=== PATIENT | male | born 1965 | race Two or more races ===

== ENCOUNTER 2016-05-06 08:49 | Emergency (ER) | payer BC ==
[2016-05-06 09:05] VITALS: BP 122/69
--- NOTE | 2016-05-06 10:00 | UC ---
Respiratory Complaint HPI - HPI Summary HPI Summary: SLIPPED AND FELL IN SHOWER 10 DAYS AFO. WENT TO [facility] AND DIAGNOSED WITH RIGHT SIDED RIB FRACTURE. SINCE THEN PT HAS HAD PERSISTENT PAIN WITH DEEP BREATHS, COUGHING AND MVMT. 3 DAYS AGO STARTED FEELING SOB. HAS A SCRATCHY THROAT, SOME NASAL CONGESTION AND BENITEZ. SUBJECTIVE FEVER AND CHILLS. - History of Current Complaint Chief Complaint: UC Stated Complaint: CONGESTION/COUN Time Seen by Provider: 05/06/16 09:43 Hx Obtained From: Patient Onset/Duration: Gradual Onset, Lasting Days, Still Present Timing: Constant Severity Initially: Moderate Severity Currently: Moderate Pain Intensity: 0 Pain Scale Used: 0-10 Numeric Character: Cough: Nonproductive Aggravating Factors: Deep Breaths - COUGH, MVMT Alleviating Factors: Nothing Associated Signs And Symptoms: Positive: Dyspnea, Fever, URI, Nasal Congestion. Negative: Wheezing, Hemoptysis, Edema - Allergies/Home Medications Allergies/Adverse Reactions: Allergies Allergy/AdvReac Type Severity Reaction Status Date / Time No Known Allergies Allergy Verified 05/06/16 08:58 Home Medications: Home Medications Ibuprofen [Ibuprofen 200 MG] 800 mg PO Q6H PRN 05/06/16 [History Confirmed 05/06] PMH/Surg Hx/FS Hx/Imm Hx Previously Healthy: Yes Endocrine History Of: Denies: Diabetes, Thyroid Disease Cardiovascular History Of: Denies: Hypertension, Pacemaker/ICD Respiratory History Of: Denies: Asthma - Surgical History Surgical History: Yes Surgery Procedure, Year, and Place: [facility] BACK 8 YRS AGO. right knee - Family History Known Family History: Positive: None Negative: Cardiac Disease, Hypertension - Social History Alcohol Use: Occasionally Substance Use Type: None Smoking Status (MU): Never Smoked Tobacco Have You Smoked in the Last Year: No - Immunization History Most Recent Influenza Vaccination: none Review of Systems Constitutional: Fever, Chills ENT: Sore Throat, Nasal Discharge Respiratory: Shortness Of Breath, Cough Cardiovascular: Negative Gastrointestinal: Negative Neurological: Headache All Other Systems Reviewed And Are Negative: Yes Physical Exam Triage Information Reviewed: Yes Appearance: Well-Appearing, No Pain Distress, Well-Nourished Vital Signs: Initial Vital Signs Temp 98.4 F 05/06/16 09:00 Pulse 83 05/06/16 09:00 Resp 16 05/06/16 09:00 BP 122/69 05/06/16 09:00 Pulse Ox 99 05/06/16 09:00 Vital Signs Reviewed: Yes Eyes: Positive: Conjunctiva Clear ENT: Positive: Hearing grossly normal, Pharynx normal, TMs normal Neck: Positive: Supple, Nontender, No Lymphadenopathy Respiratory Exam: Normal Cardiovascular Exam: Normal Abdomen Description: Positive: Soft Musculoskeletal: Positive: No Edema, Other: - TTP RIGHT ANTERIOR RIB CAGE Neurological: Positive: Alert Psychological: Positive: Age Appropriate Behavior Skin: Negative: rashes UC Diagnostic Evaluation - Laboratory O2 Sat by Pulse Oximetry: 99 - Radiology Xray Interpretation: No Acute Changes - CHEST XRAY Radiology Interpretation Completed By: Radiologist Respiratory Course/Dx - Differential Dx/Diagnosis Provider Diagnoses: ACUTE URI Discharge - Discharge Plan Condition: Stable Disposition: HOME Patient Education Materials: Upper Respiratory Infection (ED) Referrals: Rashaad Valdes MD [Primary Care Provider] - If Needed Additional Instructions: CHEST XRAY TODAY UNREMARKABLE. BE SURE TO TAKE DEEP BREATHS TO KEEP YOUR LUNG CAPACITY UP. REST, HYDRATE, OTC MEDS NEEDED FOR DISCOMFORT. SEEK FOLLOW-UP IF YOU ARE NOT IMPROVING EXPECTED OVER THE NEXT 1-2 WEEKS. GO TO THE ER WITHOUT FAIL IF YOU DEVELOP WORSENING SHORTNESS OF BREATH, CHEST PAIN, FEVER, NAUSEA OR ANY OTHER CONCERNING SYMPTOMS.
--- NOTE | 2016-05-06 10:24 | RAD ---
INDICATION: Shortness of breath. History of rib fracture 10 days ago. COMPARISON: November 13, 2003 TECHNIQUE: Dual energy PA and routine lateral views of the chest were obtained. REPORT: No RIGHT or LEFT rib fracture evident. Clear lungs and pleural spaces. Negative for pneumothorax. The heart, pulmonary vasculature, and mediastinal contours are unremarkable. Unremarkable osseous structures and soft tissue contours. IMPRESSION: No evidence for acute intrathoracic disease.
== END 2016-05-06 11:00 | disposition home or self-care (01) ==
LOC: UCEAST 08:49
DX: J06.9 Acute upper respiratory infection, unspecified (principal)
CPT/HCPCS: 71020; 99211; G0463

== ENCOUNTER 2016-05-20 16:22 | Emergency (ER) | payer BC ==
[2016-05-20] MEDS ORDERED: oxyCODONE/Acetamin 5/325 MG* TAB PO ONE ×3 (17:35→21:16)
--- NOTE | 2016-05-20 18:42 | RAD ---
Indication: Saw injury to the left hand. 4 views of left hand demonstrates partial amputation through the base of the dorsal aspect third digit as well as a defect in the mid to mid phalanx dorsally of the fourth digit. No other fractures are noted. IMPRESSION: Traumatic defects in the dorsal aspect of the proximal end middle phalanx of the third and middle phalanx of the fourth digit with a bony fragment near the dorsal aspect of the third proximal phalanx.
[2016-05-20] MEDS ORDERED: Tetan/Diph/Pertus SYR(Tdap)* 0.5 ML SYR(BOOSTRIX) use SYR IM ONE (20:13)
[2016-05-20] MEDS ORDERED: Ciprofloxacin TAB* 500 MG PO ONE (21:42)
[2016-05-20 22:08] VITALS: BP 132/74
--- NOTE | 2016-05-21 15:28 | ED ---
Laceration/Wound HPI - HPI Summary HPI Summary: Patient arrives to ED after sustaining a laceration to the left third and fourth fingers from a table saw 1 hour ago. Patient denies feeling in the distal portion of the fingers. Good blood flow. Moderate amount of blood loss per patient. Patient unable to extend or flex fingers. Wrist is OK and not involved. Fourth, fifth and thumb are without injury. Pain is 8/10 and is localized to the third and fourth fingers. Pulses intact. - History of Current Complaint Stated Complaint: CUT FINGERS WITH TABLE SAW Time Seen by Provider: 05/20/16 17:27 Hx Obtained From: Patient Mechanism of Injury: Sharp/Blunt Trauma - table saw Aggravating: Movement Alleviating: Other - full extension Timing: Constant Onset Severity: Moderate Current Severity: Moderate Pain Intensity: 5 Pain Scale Used: 0-10 Numeric Associated Signs & Symptoms: Numbness, Pain Related Hx: Dominant Hand (Right) - Allergy/Home Medications Allergies/Adverse Reactions: Allergies Allergy/AdvReac Type Severity Reaction Status Date / Time No Known Allergies Allergy Verified 05/20/16 16:37 PMH/Surg Hx/FS Hx/Imm Hx Previously Healthy: Yes Endocrine/Hematology History: Denies: Hx Diabetes, Hx Thyroid Disease Cardiovascular History: Denies: Hx Hypertension, Hx Pacemaker/ICD Respiratory History: Denies: Hx Asthma GI History: Denies: Other GI Disorders History: Reports: Other Problems/Disorders - ENLARGE PROSTATE Sensory History: Reports: Hx Contacts or Glasses - CONTACTS WILL WEAR GLASSES DAY OF SURGERY Denies: Hx Hearing Aid Opthamlomology History: Reports: Hx Contacts or Glasses - CONTACTS WILL WEAR GLASSES DAY OF SURGERY Psychiatric History: Denies: Hx Panic Disorder - Surgical History Surgery Procedure, Year, and Place: [facility] BACK 8 YRS AGO. right knee Hx Anesthesia Reactions: No Infectious Disease History: No Infectious Disease History: Reports: Hx of Known/Suspected MRSA Denies: Traveled Outside the [place] in Last 30 Days - Family History Known Family History: Positive: None Negative: Cardiac Disease, Hypertension - Social History Occupation: Employed Full-time Lives: With Family Alcohol Use: Occasionally Hx Substance Use: No Substance Use Type: Reports: None Hx Tobacco Use: No Smoking Status (MU): Never Smoked Tobacco Have You Smoked in the Last Year: No Review of Systems Constitutional: Negative Cardiovascular: Negative Respiratory: Negative Genitourinary: Negative Positive: see HPI Positive: Decreased ROM - unable to flex and extend Positive: Other - maceration to third and fourth finger over left hand Positive: Numbness - third and fourth fingers of left hand Psychological: Normal All Other Systems Reviewed And Are Negative: Yes Physical Exam Triage Information Reviewed: Yes Vital Signs On Initial Exam: Initial Vitals Temp Pulse Resp BP Pulse Ox 98.3 F 94 18 138/75 99 05/20/16 16:37 05/20/16 16:37 05/20/16 16:37 05/20/16 16:37 05/20/16 16:37 Vital Signs Reviewed: Yes Appearance: Positive: Well-Appearing, Pain Distress Skin: Positive: Warm, Skin Color Reflects Adequate Perfusion, Other - macerated 3rd finger superior to the PIP joint with laceration involving tendon. Bone appears to be intact; macerated 4th finger of left hand with tendon involvment inferior to the DIP, bone appears to be involved. Maceration of skin to the ulnar side of 3th finger Head/Face: Positive: Normal Head/Face Inspection, Temporal Artery Tenderness Eyes: Positive: GORDON, Conjunctiva Clear ENT: Positive: Hearing grossly normal Neck: Positive: No Lymphadenopathy Respiratory/Lung Sounds: Positive: Breath Sounds Present Cardiovascular: Positive: Normal, RRR, Pulses are Symmetrical in both Upper and Lower Extremities Musculoskeletal: Positive: Normal, Strength/ROM Intact Neurological: Positive: Alert, Oriented to Person Place, Time, Speech Normal, Other - pinprick to 3rd and 4th left fingers. patient endorses numbness and tingling to fingertips. Psychiatric: Positive: Normal, Affect/Mood Appropriate AVPU Assessment: Alert Procedures - Laceration/Wound Repair 1 Location: upper extremity - finger, Other Description: Irregular Anesthesia: Local, 2.0%, Epi Length, Depth and Shape: 1cm length, .25 depth, shape irregular Betadine Prep?: No Laceration/Wound Explored: clean, no foreign body removed Closure: Single Layer - loose closure with 5 sutures Debridement: minimal Suture Type: Vicryl Number of Sutures: 5 Layer Closure?: No Sterile Dressing Applied?: No - telfa dressing with xeroform occlusive gauze strips over maceration areas 2 Location: upper extremity - 4th finger of left hand Description: Irregular Anesthesia: Local, 2.0%, Epi Betadine Prep?: No Laceration/Wound Explored: clean, no foreign body removed Closure: Single Layer Debridement: minimal Suture Type: Vicryl Number of Sutures: 4 Layer Closure?: No Sterile Dressing Applied?: No - telfa dressing with xeroform occlusive gauze strips over maceration areas Diagnostics - Vital Signs Vital Signs Temp Pulse Resp BP Pulse Ox 05/20/16 22:06 98.9 F 77 14 132/74 05/20/16 16:37 98.3 F 94 18 138/75 99 - Laboratory Lab Statement: Any lab studies that have been ordered have been reviewed, and results considered in the medical decision making process. - Radiology No standard instances Xray Interpretation: Positive (See Comments) - dorsal aspect of proximal end middle phalynx of the third and middle phalynx of the fourth digit with bony fragment near the dorsal aspect of the third proximal phalynx Radiology Interpretation Completed By: Radiologist Laceration Repair Course/Dx - Course Course Of Treatment: Macerated 3rd finger superior to the PIP joint with laceration involving tendon, bone appears to be intact; macerated 4th finger of left hand with tendon involvment inferior to the DIP, bone appears to be involved. Maceration of skin to the ulnar side of 3th finger. See hand Xray. Irrigated well, tetanus updated. 5 loose closure sutures to 3rd finger of left hand, 4 loose sutures to 4th finger of left hand. Xeroform applied to areas of maceration. Volar spint extending to fingertips with comfortable position for patient. Antibiotics given. Follow up with DR. Gamboa on Monday or Monday. Called and consulted with Dr. Lugo at 7:15pm. Pain medication given as outpatient. - Differential Dx Differental Diagnoses: Avulsion, Foreign Body, Laceration, Tendon Laceration - Clinical Impression Provider Diagnoses: Extensor tendon laceration of left hand with open wound Discharge - Discharge Plan Condition: Stable Disposition: HOME Prescriptions: Cefuroxime Axetil [Ceftin 250 MG] 250 mg PO BID #20 tab oxyCODONE/Acetamin 10/325(NF) [Percocet 10/325 (NF)] 1 tab PO Q6H #15 tab MDD 4 Patient Education Materials: Finger Laceration (ED), Tendon Laceration (ED) Forms: *Work Release Referrals: Rashaad Valdes MD [Primary Care Provider] - Liliana Gamboa MD [Medical Doctor] - Additional Instructions: Do not get splint wet. Take antibiotic as prescribed to you. Follow up with DR. Gamboa on Monday. IF you develop fever or worsening pain not controlled with your pain medication , come back to ED. Images - Images Hands: 1 - macerated skin with laceration through tendon involving bone 2 - maceration with laceration involving tendon likely without bone involvement
[2016-05-21] MEDS ORDERED: ceFUROXime 500 mg TAB(NF) 500 MG TAB PO ONE (21:13)
[2016-05-24] MEDS ORDERED: Buffered Lidocaine 1% SYR 3ML* 3 ML/SYR SYRINGE INTRADERM ONE (06:00)
== END 2016-05-20 22:06 | disposition home or self-care (01) ==
LOC: ED 16:22
DX: S56.424A Laceration of extensor muscle, fascia and tendon of left middle finger at forearm level, initial encounter (principal); S56.426A Laceration of extensor muscle, fascia and tendon of left ring finger at forearm level, initial encounter; W45.8XXA Other foreign body or object entering through skin, initial encounter; Y93.9 Activity, unspecified; Y92.9 Unspecified place or not applicable; Y99.9 Unspecified external cause status; R20.0 Anesthesia of skin
CPT/HCPCS: 12002; 90471; 90715; 99284; A9270-GY

== ENCOUNTER 2016-05-24 11:07 | Day surgery (SDC) | payer BC ==
--- NOTE | 2016-05-24 06:52 | HP ---
PREOPERATIVE HISTORY AND PHYSICAL: DATE OF SURGERY/ADMISSION: 05/24/16 DATE OF OFFICE VISIT/ENCOUNTER: 05/23/16 ATTENDING SURGEON: Liliana Gamboa MD PROCEDURE: Left long and ring finger extensor tendon repair. HISTORY OF PRESENT ILLNESS: This is a 51-year-old male who injured his left hand on 05/20/16 when he was working at home with a table saw. He cut himself on the dorsal aspect of the middle and ring fingers of the left hand. He was seen at [facility] and had x-rays taken which were positive for fracture and bony defect. He had sutures placed. He complains of inability to straighten his fingers and pain with any movement. He has been evaluated by Dr. Gamboa and it was determined that the left long and ring finger extensor tendons had been lacerated. He had consented to proceed with surgical intervention at this time in the form of the left long and ring finger extensor tendon repair. PAST MEDICAL HISTORY: Benign prostatic hypertrophy. PAST SURGICAL HISTORY: 1. Back surgery proximally 15 years ago. 2. Appendectomy. 3. Right knee arthroscopy. CURRENT MEDICATIONS: 1. Cefuroxime axetil 250 mg. 2. Finasteride 5 mg. 3. Tamsulosin HCL 0.4 mg. ALLERGIES: No known drug allergies. FAMILY MEDICAL HISTORY: Noncontributory. 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 He denies tobacco use. He denies recreational drug use. He does admit to alcohol use on occasion. REVIEW OF SYSTEMS: General: Negative for fevers, chills, or night sweats. No known anesthesia problems. HEENT: Negative for headache, lightheadedness, or syncopal episodes. Integumentary: Negative for abrasions, lesions, or open wounds. Cardiothoracic: Negative for chest pain, palpitations, or edema. Negative for hypertension. Pulmonary: Negative for shortness of breath with exertion, chronic cough, COPD. GI: Negative for nausea, vomiting, diarrhea, or GERD. : Positive for BPH. Negative for nocturia, urinary frequency, urgency, history of UTIs, or kidney problems. Musculoskeletal: Positive for current complaint. Negative for chronic or intermittent back pain or history of fractures. Neurological: Negative for paresthesias, numbness, history of seizure, stroke, or epilepsy. Endocrine: Negative for diabetes or thyroid issues. Hematologic: Negative for easy bruising, anemia, excessive bleeding, or history of DVT. Infectious Disease: Positive for questionable history of MRSA. Negative for hepatitis C or HIV. PHYSICAL EXAMINATION GENERAL: Well-developed, well nourished, 51-year-old male, in no acute distress. VITAL SIGNS: Height 5 feet 5 inches, weight 180 pounds, blood pressure 128/83, pulse rate 60. HEENT: Normocephalic, atraumatic. Pupils are equal, round, and reactive to light and accommodation. Extraocular movements are intact. NECK: Supple. No palpable lymph nodes. Throat is clear. PULMONARY: Lungs are clear to auscultation bilaterally. No wheezes, rales, or rhonchi. CARDIOTHORACIC: Regular rate and rhythm. S1 and S2. No murmurs, rubs, or gallops. No edema. ABDOMEN: Positive bowel sounds, soft, nontender. NEUROLOGICAL: Alert and oriented x3. Cranial nerves II through X11 are intact. Sensation is intact to light touch. MUSCULOSKELETAL: On exam of his left hand, he has lacerations on the dorsal aspect of the middle phalanx of his ring and middle fingers of the left hand. They are clean. There is no sign of infection. He does not have active extension of the fingers distal to the lacerations. Sensation is intact to light touch at the tip of his fingers. IMAGING STUDIES: X-rays of the left hand show fracture of the middle phalanx of the middle finger at the insertion of the extensor tendon with retraction of the fracture fragments. There is also width of a saw blade bone missing from the dorsal aspect of the ring finger, but without fracture. IMPRESSION: Laceration to left ring and middle finger, extensor tendons from table saw injury. PLAN: The patient is scheduled to undergo a left long and ring finger extensive tendon repair with Dr. Gamboa on 05/24/16. He will return to the office in 10 to 14 days postop for followup and suture removal. A prescription for [place] was e- scribed to the patient's pharmacy for postoperative pain management. URIEL CASTELAN [id number]/[facility] #: [id number] STACEY
[2016-05-24] MEDS ORDERED: ceFAZolin 2 GM PREMIX (*) 2 GM/50 ML BAG IVPB ONE (11:48)
[2016-05-24] MEDS ORDERED: Midazolam* 1 MG/ML 2 ML VIAL (2 MG) ONE (12:34)
[2016-05-24] MEDS ORDERED: fentaNYL* 50 MCG/ML 2 ML VIAL (100 MCG VIAL) ONE (12:34)
[2016-05-24] MEDS ORDERED: Lidocaine 1% INJ* 10 MG/ML 30 ML SDV ONE (12:57)
[2016-05-24 14:37] VITALS: BP 114/70
--- NOTE | 2016-05-25 18:06 | OP ---
DATE OF OPERATION: 05/24/16 - [facility] DATE OF : 61 SURGEON: Dr. Gamboa C IRON WORKER: URIEL Devlin ANESTHESIOLOGIST: Remy Saenz MD ANESTHESIA: Local, MAC. PRE-OP DIAGNOSIS: Table saw injury to the left long and ring fingers with extensor tendon lacerations. POST-OP DIAGNOSIS: Table saw injury to the left long and ring fingers with extensor tendon lacerations. OPERATIVE PROCEDURE: Extensor tendon repair, left long and ring finger. ESTIMATED BLOOD LOSS: Zero. TOURNIQUET TIME: About 30 minutes. INDICATION FOR PROCEDURE: Kaleb is a 31-year-old man who was using a table saw. He accidentally cut the dorsal aspect of his ring and long fingers. This occurred 2 days ago. He cannot extend the DIP joint of the ring finger or the PIP joint of his middle finger. He presents for extensor tendon repairs. X- ray shows a bony fragment at the insertion of the central slip of the middle finger, which is retracted proximally. DESCRIPTION OF PROCEDURE: The patient was brought to the operating room, was given a sedation anesthetic, and a digital block with 10 cc of 1% plain lidocaine. The skin of his left hand and forearm was prepped and draped in the usual sterile fashion. The hand and forearm were exsanguinated and tourniquet elevated to 250 mmHg. The sutures were removed and the ring finger ends of the tendon were located and repaired in interrupted fashion with 4-0 nylon suture. The tissue was very, very thin. There was also a gouge-out of the bone from the table saw, but no fracture. The skin was very macerated. To protect the repair, a 0.035-inch K-wire was driven across the DIP joint through the distal phalanx and into the middle phalanx with the finger in full extension. The position of the K-wire was checked on the C-arm in the AP and lateral views, found to be satisfactory. Next, the middle finger extensor tendon was located and the wound copiously irrigated with saline. There was a cartilage defect on the distal surface of the proximal phalanx from the table saw. The wound was copiously irrigated with saline. The PIP joint was pinned with a single 0.035- inch K-wire driven through the proximal phalanx and into the middle phalanx in full extension. Next, 2 Mitek suture anchors were placed in the middle phalanx and the sutures used through the bony fragment to reapproximate the central slip to the middle phalanx. The skin edges were reapproximated with 4-0 nylon suture. The wounds were dressed with Xeroform, 4x4, Webril, and an ulnar gutter splint in position of function. The patient tolerated the procedure well and was brought to the recovery room in good condition. [id number]/[facility] #: [id number] STACEY
== END 2016-05-24 14:30 | disposition home or self-care (01) ==
LOC: OREAST 11:07
PROVIDERS: ATTEND Orthopaedic Surgery
DX: S66.323A Laceration of extensor muscle, fascia and tendon of left middle finger at wrist and hand level, initial encounter (principal); S66.325A Laceration of extensor muscle, fascia and tendon of left ring finger at wrist and hand level, initial encounter; W29.8XXA Contact with other powered hand tools and household machinery, initial encounter; Y92.009 Unspecified place in unspecified non-institutional (private) residence as the place of occurrence of the external cause
CPT/HCPCS: C1713; C1776; J0690; J2250; J3010

== ENCOUNTER 2016-11-08 09:51 | Emergency (ER) | payer SELFPAY ==
[2016-11-08 11:54] VITALS: BP 110/74
--- NOTE | 2016-11-08 11:57 | RAD ---
Indication: Surgery of the left middle finger with. Drainage. 3 views of left middle finger demonstrates anchor is in the proximal end middle phalanx of the third digit. Lucency appears to BE improved since previous exam. Angulation is unchanged from July 06, 2016. IMPRESSION: Postoperative changes of the proximal interphalangeal joint of the third finger.
--- NOTE | 2016-11-08 12:58 | UC ---
Skin Complaint HPI - HPI Summary HPI Summary: HAD SURGERY ON LEFT MIDDLE FINGER . NO COMPLICATIONS. LAST WEEK ACCIDENTLY TWISTED FINGER , SINCE THAT TIME HAS HAD DRAINAGE FROM FINGER AT SITE OF OLD SURGICAL INCISION. - History of Current Complaint Chief Complaint: UCUpperExtremity Time Seen by Provider: 11/08/16 10:46 Stated Complaint: WOUND ON FINGER CHECK Hx Obtained From: Patient Onset/Duration: Gradual Onset, Lasting Days, Still Present Skin Exposure Onset/Duration: Days Ago Onset Severity: Mild Current Severity: Moderate Pain Intensity: 0 Pain Scale Used: 0-10 Numeric Location: Discrete - LEFT THIRD FINGER Character: Swelling, Redness, Raised, Painful Aggravating: Nothing, Touch Alleviating: Nothing Associated Signs & Symptoms: Positive: Drainage, Tenderness, Red Streaks. Negative: Vomiting, Numbness, Fever, Chills, Cough, Chest Pain, Hoarseness, Throat Tightening, Rash Related History: Trauma - Allergy/Home Medications Allergies/Adverse Reactions: Allergies Allergy/AdvReac Type Severity Reaction Status Date / Time No Known Allergies Allergy Verified 11/08/16 10:06 Review of Systems Constitutional: Negative Skin: Other - ABSCESS DRAINING ON LEFT THIRD FINGER Eyes: Negative ENT: Negative Respiratory: Negative Cardiovascular: Negative Gastrointestinal: Negative Genitourinary: Negative Motor: Negative Neurovascular: Negative Musculoskeletal: Negative Neurological: Negative Psychological: Negative All Other Systems Reviewed And Are Negative: Yes PMH/Surg Hx/FS Hx/Imm Hx Previously Healthy: Yes - Surgical History Surgical History: Yes Surgery Procedure, Year, and Place: [facility] BACK 8 YRS AGO-[facility]. right knee-[facility] - Family History Known Family History: Positive: None Negative: Cardiac Disease, Hypertension - Social History Occupation: Employed Full-time Lives: With Family Alcohol Use: Weekly Alcohol Amount: 2 GLASSES WEEKLY Substance Use Type: None Smoking Status (MU): Never Smoked Tobacco Have You Smoked in the Last Year: No - Immunization History Most Recent Influenza Vaccination: none Physical Exam Triage Information Reviewed: Yes Appearance: Well-Appearing, No Pain Distress, Well-Nourished Vital Signs: Initial Vital Signs Temp 99.1 F 11/08/16 10:06 Pulse 88 11/08/16 10:06 Resp 18 11/08/16 10:06 BP 110/71 11/08/16 10:06 Pulse Ox 98 11/08/16 10:06 Vital Signs Reviewed: Yes Eye Exam: Normal Eyes: Positive: Conjunctiva Clear ENT Exam: Normal Dental Exam: Normal Neck exam: Normal Respiratory Exam: Normal Respiratory: Positive: Chest non-tender, Lungs clear, Normal breath sounds, No respiratory distress Cardiovascular Exam: Normal Cardiovascular: Positive: RRR, No Murmur, Pulses Normal Abdominal Exam: Normal Musculoskeletal Exam: Normal Neurological Exam: Normal Psychological Exam: Normal Skin: Positive: Other - ABSCESS DRAINING LEFT THIRD FINGER Course/Dx - Differential Diagnoses - Skin Complaint Differential Diagnoses: Abscess, Cellulitis, Impetigo, Other - OSTEOMYELITIS - Diagnoses Provider Diagnoses: LEFT THIRD FINGER ABSCESS Discharge - Discharge Plan Condition: Stable Disposition: HOME Prescriptions: Cephalexin CAP* [Keflex CAP*] 500 mg PO QID #40 cap Patient Education Materials: Abscess (ED) Referrals: Rashaad Valdes MD [Primary Care Provider] - Liliana Gamboa MD [Medical Doctor] -
--- NOTE | 2016-11-09 16:35 | ED ---
Progress - Progress Note Progress Note: PLEASE CALL PATIENT. CHANGED ABX TO BACTRIM DS. F/U WITH [facility]. Course/Dx - Diagnoses Provider Diagnoses: Abscess
== END 2016-11-08 12:19 | disposition home or self-care (01) ==
LOC: UCEAST 09:51
DX: L02.512 Cutaneous abscess of left hand (principal)
CPT/HCPCS: 73140; 87070; 87077; 87186; 87205; 87640; 87641; 99212; G0463

== ENCOUNTER → 2016-11-25 09:28 | Day surgery (SDC) | payer BC ==
--- NOTE | 2016-11-21 15:03 | HP ---
PREOPERATIVE HISTORY AND PHYSICAL: DATE OF SURGERY/ADMISSION: 11/25/16 DATE OF OFFICE VISIT/ENCOUNTER: 11/21/16 ATTENDING SURGEON: Liliana Gamboa MD * (DICTATED BY URIEL CASTELAN) PROCEDURE: Left middle finger incision and drainage, removal of foreign body. CHIEF COMPLAINT: Left middle finger infection. HISTORY OF PRESENT ILLNESS: This is a 51-year-old male who underwent a left middle finger extensor tendon repair by Dr. Gamboa back in April 2016. He reports that a couple of weeks ago, he noticed some drainage coming from the dorsal area of the PIP joint. He was seen at [facility] and was treated with antibiotics. He also had x-rays that did not show any sign of osteomyelitis; however, he is getting recurrent drainage and pain at the joint. X-rays of the finger did show the suture anchors that were placed during the tendon repair and they have backed out and possibly causing this problem. Dr. Gamboa is recommending surgical intervention at this time in the form of a left middle finger I and D and removal of the suture anchors. PAST MEDICAL HISTORY: Benign prostatic hypertrophy. PAST SURGICAL HISTORY: 1. Left long and ring finger extensor tendon repair. 2. Back surgery approximately 15 years ago. 3. Appendectomy. 4. Right knee arthroscopy. CURRENT MEDICATIONS: 1. Cefuroxime axetil 250 mg daily. 2. Finasteride 5 mg daily. 3. Tamsulosin HCl 0.4 mg daily. ALLERGIES: No known drug allergies. FAMILY MEDICAL HISTORY: Noncontributory. 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 He denies tobacco use and recreational drug use. He does admit to drinking alcohol on occasions. REVIEW OF SYSTEMS: General: Negative for fevers, chills, or night sweats. No known anesthesia problems. HEENT: Negative for headache, lightheadedness, or syncopal episodes. Integumentary: Negative for abrasions, lesions, or open wounds. Cardiothoracic: Negative for hypertension, chest pain, palpitations, or edema. Pulmonary: Negative for shortness of breath with exertion, chronic cough, or COPD. GI: Negative for nausea, vomiting, diarrhea, constipation, or GERD. : Positive for BPH. Negative for nocturia, urinary frequency, urgency , history of UTIs, or kidney problems. Musculoskeletal: Positive for current complaint. Negative for chronic or intermittent back pain or history of fractures. Neurological: Negative for paresthesias, numbness, history of seizures, stroke, or epilepsy. Endocrine: Negative for diabetes or thyroid issues. Hematologic: Negative for easy bruising, anemia, excessive bleeding, or history of DVT. Infectious Disease: Positive for questionable history of MRSA. Negative for hepatitis C or HIV. PHYSICAL EXAMINATION GENERAL: Well-developed, well-nourished 51-year-old male in no acute distress. VITAL SIGNS: Height 5 feet 5 inches, weight 180 pounds, pulse rate 64, blood pressure 112/72. HEENT: Normocephalic, atraumatic. Pupils are equal, round, and reactive to light and accommodation. Extraocular movements are intact. Throat is clear. NECK: Supple. No palpable lymph nodes. PULMONARY: Lungs are clear to auscultation bilaterally. No wheezes, rales, or rhonchi. CARDIOTHORACIC: Regular rate and rhythm. S1, S2. No murmurs, rubs, or gallops. No edema. ABDOMEN: Positive bowel sounds, soft, nontender. MUSCULOSKELETAL: On exam of the left middle finger, he has a pocket of swelling localized over the PIP joint. There is a scabbed over wound just distal to that, there is no active drainage at this time. Very faint erythema. The finger is tender to palpation over the PIP joint. Distal neurovascular function is intact. NEUROLOGICAL: Alert and oriented x3. Cranial nerves II through XII are intact. Sensation is intact to light touch. IMAGING STUDIES: X-rays of the left middle finger, AP, lateral, and oblique show the suture anchors near the PIP joint that appeared to have backed out some. IMPRESSION: Postop wound infection several months after surgery. PLAN: The patient is scheduled to undergo a left middle finger incision and drainage and removal of foreign bodies (suture anchors) on 11/25/[address] Gamboa. He will return to the office 10 to 14 days postop for followup. A prescription for Ultracet was e-scribed to the patient's pharmacy for postoperative pain management. URIEL CASTELAN [id number]/[facility] #: [id number] [facility]
[~2016-11-25 09:28] MED LIST: Acetaminophen TAB* 325 MG ONE; Acetaminophen TAB* 325 MG PO ONE; Buffered Lidocaine 0.9% SYRIN* 5 ML/SYR SYRINGE INTRADERM ONE; Lidocaine 1% INJ* 10 MG/ML 30 ML SDV ONE; Midazolam* 1 MG/ML 2 ML VIAL (2 MG) ONE; ceFAZolin 2 GM PREMIX (*) 50 ML IVPB ONE; fentaNYL* 50 MCG/ML 2 ML VIAL (100 MCG VIAL) ONE; traMADol TAB* 50 MG PO ONE
[2016-11-25 12:42] VITALS: BP 106/78
--- NOTE | 2016-11-26 13:32 | OP ---
DATE OF OPERATION: 11/25/16 - [facility] DATE OF : 61 SURGEON: Liliana Gamboa MD. DIRECTOR OF PHOTOGRAPHY: URIEL Devlin. ANESTHESIOLOGIST: Remy Saenz MD ANESTHESIA: Local MAC. PRE-OP DIAGNOSIS: Status post table saw injury of the left middle finger. POST-OP DIAGNOSIS: Status post table saw injury of the left middle finger. OPERATIVE PROCEDURE: Irrigation and debridement left middle finger and removal of foreign body. ESTIMATED BLOOD LOSS: Zero. TOURNIQUET TIME: About 15 minutes. INDICATION FOR PROCEDURE: Kaleb is a 51-year-old man who had a table saw injury to his left hand involving the ring and middle fingers. He has persistent pain and drainage from the middle finger PIP joint. He has 2 Mitek suture anchors which are not functioning and has decided to do I and D of the left middle finger with removal of the foreign bodies. DESCRIPTION OF PROCEDURE: The patient was brought to the operating room, was given a sedation anesthetic and a digital block with 10 cc of 1% plain lidocaine. Skin of his left hand and forearm was prepped and draped in the usual sterile fashion. The hand and forearm were exsanguinated and the tourniquet elevated to 250 mmHg. A longitudinal incision was made over the PIP joint and there was some purulent drainage and this was cultured. The wound was debrided and there was a small 5 mm area of skin defect. The Mitek suture anchors were removed and then the wound was copiously irrigated with saline and the skin edges reapproximated with 4-0 nylon suture. There was a small area where the skin was not able to be closed, about 5 mm in diameter. The wound was dressed with Xeroform, 4x4, Webril and Coban. The patient tolerated the procedure well, and was brought to the recovery room in good condition. [id number]/[facility] #: [id number] [facility]ENTER[facility]atha
== END | disposition home or self-care (01) ==
LOC: OR 09:28
PROVIDERS: ATTEND Orthopaedic Surgery
DX: T85.612A Breakdown (mechanical) of permanent sutures, initial encounter (principal); N40.0 Benign prostatic hyperplasia without lower urinary tract symptoms; Y79.3 Surgical instruments, materials and orthopedic devices (including sutures) associated with adverse incidents
CPT/HCPCS: 87070; 87073; 87077; 87186; 87205; 87640; 87641; A9270-GY; J0690; J2001; J2250; J3010

== ENCOUNTER 2017-01-11 09:53 | Emergency (ER) | payer BC ==
[2017-01-11] MEDS ORDERED: Famotidine IV* 10 MG/ML 2 ML (20 mg) IV SLOW PU ONE (10:03)
[2017-01-11] MEDS ORDERED: diPHENhydraMINE IV* 50 MG in NS 0.9% 50 ML* 50 ML IVPB ONE (10:03)
[2017-01-11] MEDS ORDERED: Dexamethasone IV* 4 MG/ML 1 ML (4 MG) IV SLOW PU ONE (10:03)
[2017-01-11] MEDS ORDERED: NS 0.9% 1000 ML* 1,000 ML IV SCH (10:15)
[2017-01-11 12:36] VITALS: BP 118/70
--- NOTE | 2017-01-12 08:30 | ED ---
Jadiel Agosto Angela, scribed for Arsenio Wall MD on 01/11/17 at 1014 . Allergic Reaction/Systemic - HPI Summary HPI Summary: This pt is a 52 y/o male presenting to [facility] c/o hives and throat tightening since last night. Pt reports his allergic reaction began after taking oral sulfa antibiotics last night. Pt notes initially he had body hives all over his body and throat tightening and swelling. Upon waking up today at 0430 pt notes he felt better and his hives were resolved. Pt went to work at 0600 but states he began to have more throat discomfort and throat tightening. 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 He notes he has chest pain, which he had prior to receiving epi. PMHx: BPH. PSHx: appendectomy. Pt denies tobacco or drug use, but states drinking alcohol. Pt is currently on tamsulosin for BPH. - History of Current Complaint Chief Complaint: EDAllergicReaction Time Seen by Provider: 01/11/17 09:55 Hx Obtained From: Patient Onset/Duration: Started hours ago Timing: Lasting Hours Pain Intensity: 0 Location: Diffuse - hives and throat tightening Character: Hives Aggravating Factor(s): Other - sulfa antibiotic Alleviating Factor(s): Epinephrine Associated Signs And Symptoms: Positive: Chest Pain, Throat Tightening, Other: - hives - Allergies/Home Medications Allergies/Adverse Reactions: Allergies Allergy/AdvReac Type Severity Reaction Status Date / Time Sulfamethoxazole Allergy Severe Hives/Diff. Verified 01/11/17 12:29 w/Trimethoprim Breathing/I [From Bactrim] tching PMH/Surg Hx/FS Hx/Imm Hx Endocrine/Hematology History: Denies: Hx Diabetes, Hx Thyroid Disease Cardiovascular History: Denies: Hx Hypertension, Hx Pacemaker/ICD Respiratory History: Denies: Hx Asthma GI History: Denies: Other GI Disorders History: Reports: Other Problems/Disorders - ENLARGED PROSTATE. BPH. Musculoskeletal History: Reports: Other Musculoskeletal History - FB AND INFECTION IN LEFT LONG FINGER Sensory History: Reports: Hx Contacts or Glasses - CONTACTS WILL WEAR GLASSES DAY OF SURGERY Denies: Hx Hearing Aid Opthamlomology History: Reports: Hx Contacts or Glasses - CONTACTS WILL WEAR GLASSES DAY OF SURGERY Psychiatric History: Denies: Hx Panic Disorder - Surgical History Surgery Procedure, Year, and Place: APPENDECTOMY-30 YRS AGO [place]. LUMBAR SPINE HERNIATION- [facility]. RIGHT MENISCAL REPAIR- 2014 [facility] Hx Anesthesia Reactions: No Infectious Disease History: Yes Infectious Disease History: Reports: Hx of Known/Suspected MRSA Denies: Traveled Outside the [place] in Last 30 Days - Family History Known Family History: Negative: Cardiac Disease, Hypertension - Social History Alcohol Use: Weekly Alcohol Amount: 2 GLASSES WEEKLY Hx Substance Use: No Substance Use Type: Reports: None Hx Tobacco Use: No Smoking Status (MU): Never Smoked Tobacco Have You Smoked in the Last Year: No Review of Systems Negative: Fever, Chills Positive: Other - throat tightening and swelling Positive: Chest Pain Respiratory: Negative Gastrointestinal: Negative Genitourinary: Negative Musculoskeletal: Negative Positive: Other - hives All Other Systems Reviewed And Are Negative: Yes Physical Exam - Summary Physical Exam Summary: VITAL SIGNS: Reviewed. GENERAL: Patient is a well-developed and nourished male who is lying comfortable in the stretcher. Patient is not in any acute respiratory distress. HEAD AND FACE: No signs of trauma. No ecchymosis, hematomas or skull depressions. No sinus tenderness. EYES: PERRLA, EOMI x 2, No injected conjunctiva, no nystagmus. EARS: Hearing grossly intact. Ear canals and tympanic membranes are within normal limits. MOUTH: Oropharynx within normal limits. Pt has no lip swelling or tongue swelling. The throat is patent and airway is open. NECK: Supple, trachea is midline, no adenopathy, no JVD, no carotid bruit, no c- spine tenderness, neck with full ROM. CHEST: Symmetric, no tenderness at palpation LUNGS: Clear to auscultation bilaterally. No wheezing or crackles. CVS: Regular rate and rhythm, S1 and S2 present, no murmurs or gallops appreciated. ABDOMEN: Soft, non-tender. No signs of distention. No rebound no guarding, and no masses palpated. Bowel sounds are normal. EXTREMITIES: FROM in all major joints, no edema, no cyanosis or clubbing. NEURO: Alert and oriented x 3. No acute neurological deficits. Speech is normal and follows commands. SKIN: Dry and warm. No hives any longer. Triage Information Reviewed: Yes Vital Signs On Initial Exam: Initial Vitals Temp Pulse Resp BP Pulse Ox 98.7 F 81 16 124/82 98 01/11/17 09:54 01/11/17 09:54 01/11/17 09:54 01/11/17 09:54 01/11/17 09:54 Vital Signs Reviewed: Yes Diagnostics - Vital Signs Vital Signs Temp Pulse Resp BP Pulse Ox 01/11/17 09:54 98.7 F 81 16 124/82 98 - Laboratory Lab Statement: Any lab studies that have been ordered have been reviewed, and results considered in the medical decision making process. Re-Evaluation - Re-Evaluation First Eval Re-Evaluation Time: 12:23 Comment: The pt is feeling much better. Allergic Reaction Course/Dx - Course Assessment/Plan: This pt is a 52 y/o male presenting to [facility] c/o hives and throat tightening since last night. Pt reports his allergic reaction began after taking oral sulfa antibiotics last night. Pt notes initially he had body hives all over his body and throat tightening and swelling. Upon waking up today at 0430 pt notes he felt better and his hives were resolved. Pt went to work at 0600 but states he began to have more throat discomfort and throat tightening. 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 He notes he has chest pain, which he had prior to receiving epi. PMHx: BPH. PSHx: appendectomy. Pt denies tobacco or drug use, but states drinking alcohol. Pt is currently on tamsulosin for BPH. Initially the pt came with difficulty to swallow, feeling his throat was closing and a rash after he took the second dose of Bactrim for an infection in his hand. Pt was given an epi pen en route and his symptoms significantly improved. At the time of arrival to the ED the rash had resolved. Pts symptoms had improved. He was given Decadron, Pepcid, and Benadryl and the pt became asymptomatic. The pt was observed for a couple of hours and his symptoms did not return. Therefore, the pt will be discharged to home with follow up from his PCP. He was given a prescription for Pepcid, Benadryl, epinephrine, and prednisone. He was also given a prescription for clindamycin and was told not to continue to take Bactrim. Pt understands and agrees. Pt is hemodynamically stable, alert and oriented x3. - Diagnoses Differential Diagnosis/HQI/PQRI: Positive: Anaphylaxis, Local Allergic Reaction Provider Diagnoses: Allergic reaction Discharge - Discharge Plan Condition: Stable Disposition: HOME Prescriptions: Clindamycin HCl [Clindamycin 150 MG CAP*] 150 mg PO QID #40 cap Epinephrine [Epipen 2-Jsohua] 0.3 mg IM ONCE PRN #1 kit PRN Reason: Allergy Symptoms Famotidine TAB* [Pepcid 20 MG TAB*] 20 mg PO BID #10 tab diPHENhydraMINE PO* [Benadryl PO 25 MG TAB*] 25 mg PO TID PRN #30 tab PRN Reason: Allergy Symptoms predniSONE TAB* [Deltasone TAB*] 40 mg PO DAILY #8 tab Patient Education Materials: General Allergic Reaction (ED) Referrals: Rashaad Valdes MD [Primary Care Provider] - Additional Instructions: Please follow up with your primary care provider. RETURN TO THE ED FOR ANY WORSENING SYMPTOMS. The documentation as recorded by the Jadiel katz Angela accurately reflects the service I personally performed and the decisions made by Duke awshington Walter, MD.
== END 2017-01-11 12:35 | disposition home or self-care (01) ==
LOC: ED 09:53
DX: L50.0 Allergic urticaria (principal); T37.0X5A Adverse effect of sulfonamides, initial encounter; Y92.9 Unspecified place or not applicable; N40.0 Benign prostatic hyperplasia without lower urinary tract symptoms; Z86.14 Personal history of Methicillin resistant Staphylococcus aureus infection
CPT/HCPCS: 96374; 96375; 99282; J1100; J1200

== ENCOUNTER → 2017-04-04 09:13 | Day surgery (SDC) | payer BC ==
--- NOTE | 2017-03-29 19:46 | HP ---
PREOPERATIVE HISTORY AND PHYSICAL: DATE OF SURGERY/ADMISSION: 04/04/17 [facility] DATE OF OFFICE VISIT/ENCOUNTER: 03/29/17 ATTENDING PHYSICIAN: Liliana Gamboa MD * (DICTATED BY URIEL CASTELAN) PROCEDURE: Left long finger PIP joint arthroplasty. CHIEF COMPLAINT: Left long finger loss of motion. HISTORY OF PRESENT ILLNESS: This is a 52-year-old male who has had trouble with his left long finger since a table saw injury in April of 2016. After the injury, he underwent an extensor tendon repair and unfortunately developed an infection afterwards. He subsequently underwent an incision and drainage of the finger. Cultures grew MRSA and the patient was treated with antibiotic prescribed by Dr. Jay. 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 He has consented to proceed with surgical intervention at this time in the form of a left long finger PIP joint arthroplasty. PAST MEDICAL HISTORY: Benign prostatic hypertrophy. PAST SURGICAL HISTORY: 1. Left long finger extensor tendon repair. 2. Left long finger incision and drainage. 3. Left ring finger extensor tendon repair. 4. Back surgery approximately 15 years ago. 5. Appendectomy. 6. Right knee arthroscopy. CURRENT MEDICATIONS: 1. Finasteride 5 mg daily. 2. Tamsulosin HCL 0.4 mg daily. ALLERGIES: No known drug allergies. FAMILY MEDICAL HISTORY: Noncontributory. 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 He denies tobacco and recreational drug use. He does admit to drinking alcohol on occasion. REVIEW OF SYSTEMS: General: Negative for fevers, chills, or night sweats. No known anesthesia problems. HEENT: Negative for headache, lightheadedness, or syncopal episodes. Integumentary: Negative for abrasions, lesions, or open wounds. Cardiothoracic: Negative for hypertension, chest pain, palpitations, or edema. Pulmonary: Negative for shortness of breath with exertion, chronic cough, or COPD. GI: Negative for nausea, vomiting, diarrhea, constipation, or GERD. : Positive for history of BPH. Negative for nocturia, urinary frequency, urgency, history of UTIs, or kidney problems. Musculoskeletal: Positive for current complaint. Negative for chronic or intermittent back pain or history of fractures. Neurological: Negative for paresthesias, numbness, history of seizures, stroke, or epilepsy. Endocrine: Negative for diabetes or thyroid issues. Hematologic: Negative for easy bruising, anemia, excessive bleeding, or history of DVT. Infectious Disease: Positive for history of MRSA. Negative for hepatitis C or HIV. PHYSICAL EXAMINATION GENERAL: Well-developed, well-nourished 52-year-old male in no acute distress. VITAL SIGNS: Height 5 feet 5 inches, weight 185 pounds. Blood pressure 120/82 , pulse rate 84. HEENT: Normocephalic, atraumatic. Pupils are equal, round, and reactive to light and accommodation. Extraocular movements are intact. Throat is clear. NECK: Supple. No palpable lymph nodes. PULMONARY: Lungs are clear to auscultation bilaterally. No wheezes, rales, or rhonchi. CARDIOTHORACIC: Regular rate and rhythm. S1, S2. No murmurs, rubs, or gallops. No edema. ABDOMEN: Positive bowel sounds, soft, nontender. MUSCULOSKELETAL: On exam of the left long finger, there is no swelling or erythema. There is no motion at the PIP joint either actively or passively. The PIP joint is in full extension. There is good motion at the DIP joint and MP joint. There is an obvious angular deformity with ulnar deviation at the distal portion of the finger at the PIP joint. Neurovascular function is intact. IMAGING STUDIES: X-rays of the left long finger show postoperative changes at the PIP joint. There is no sign of osteomyelitis. IMPRESSION: Status post table saw injury of left long finger PIP joint with resultant posttraumatic arthritis and angular deformity. PLAN: The patient is scheduled to undergo a left long finger PIP joint arthroplasty with Dr. Gamboa on 04/04/17. He will return to the office 10 days postop for followup and suture removal. A prescription for [place] was e-scribed to the patient's pharmacy for postoperative pain management. URIEL CASTELAN [id number]/[facility] #: [id number] MTDAgatha
[~2017-04-04 09:13] MED LIST changes: -Acetaminophen TAB* 325 MG ONE; -Acetaminophen TAB* 325 MG PO ONE; -Midazolam* 1 MG/ML 2 ML VIAL (2 MG) ONE; +ceFAZolin 2 GM PREMIX (*) 0 GM/0 ML BAG IVPB ONE; -ceFAZolin 2 GM PREMIX (*) 50 ML IVPB ONE; -fentaNYL* 50 MCG/ML 2 ML VIAL (100 MCG VIAL) ONE; -traMADol TAB* 50 MG PO ONE
[2017-04-04 10:10] VITALS: BP 108/67
== END | disposition home or self-care (01) ==
LOC: OREAST 09:13
PROVIDERS: ATTEND Orthopaedic Surgery
DX: S61.213D Laceration without foreign body of left middle finger without damage to nail, subsequent encounter (principal); Z53.9 Procedure and treatment not carried out, unspecified reason
CPT/HCPCS: J0690

== ENCOUNTER 2017-04-07 10:32 | Day surgery (SDC) | payer BC ==
[~2017-04-07 10:32] MED LIST changes: +Dexamethasone IV* 4 MG/ML 1 ML (4 MG) IV SLOW PU ONE; +Famotidine IV* 10 MG/ML 2 ML (20 mg) IV ONE; -Lidocaine 1% INJ* 10 MG/ML 30 ML SDV ONE; -ceFAZolin 2 GM PREMIX (*) 0 GM/0 ML BAG IVPB ONE
[2017-04-07] MEDS ORDERED: ceFAZolin 2 GM PREMIX (*) 2 GM/50 ML BAG IVPB ONE (10:40)
[2017-04-07] MEDS ORDERED: Dexamethasone IV* 4 MG/ML 1 ML (4 MG) ONE (10:41)
[2017-04-07] MEDS ORDERED: Famotidine IV* 10 MG/ML 2 ML (20 mg) ONE (10:41)
[2017-04-07] MEDS ORDERED: Naloxone* 0.4 MG/ML 1 ML VIAL IV PRN (13:07)
[2017-04-07] MEDS ORDERED: HYDROcodone/ACETAMIN 5-325 MG* 1 TAB ONE (13:57)
[2017-04-07] MEDS ORDERED: Ibuprofen TAB* 600 MG ONE (13:57)
[2017-04-07 14:34] VITALS: BP 121/77
--- NOTE | 2017-04-08 11:41 | OP ---
DATE OF OPERATION: 04/07/17 - [facility] DATE OF : 61 SURGEON: Liliana Gamboa MD LIFE SKILLS WORKER: URIEL Devlin ANESTHESIA: Local MAC. PRE-OP DIAGNOSES: Status post table saw injury of the left long finger through the PIP joint and status post MRSA infection. POST-OP DIAGNOSES: Status post table saw injury of the left long finger through the PIP joint and status post MRSA infection. OPERATIVE PROCEDURE: PIP implant arthroplasty of left middle finger. Collateral ligament reconstruction of the left middle finger PIP joint. ESTIMATED BLOOD LOSS: Zero. TOURNIQUET TIME: 80 minutes. INDICATIONS FOR PROCEDURE: Kaleb is a 52-year-old man who suffered a table saw injury of his left hand involving the DIP joint of the ring finger and the PIP joint of the middle finger. The DIP joint of the ring finger was fused and has healed, the PIP joint of the middle finger has an angular deformity and a failed extensor tendon reconstruction. The patient had developed an infection and the suture anchors used to repair the extensor tendon were removed. He has had washout as well as long-term antibiotics and now is here for PIP implant arthroplasty of the ring finger. DESCRIPTION OF PROCEDURE: The patient was brought to the operating room, was given a digital block with 10 cc of 1% plain lidocaine, applied to the left middle finger. Skin of his hand and forearm was prepped and draped in usual sterile fashion. Hand and forearm were exsanguinated, and tourniquet elevated to 250 mmHg. A dorsal longitudinal incision was made and was dissected sharply elevating the remainder of the extensor tendon and the joint capsule off of the middle and proximal phalanx across the PIP joint. We then were able to flex the finger and make parallel bone cuts for the implant arthroplasty. The collateral ligament on the radial side was very lax and so a drill hole was made through the middle phalanx on the radial aspect and the collateral ligament was repaired and this corrected the angular deformity of the PIP joint. We then used an awl and broached it up to a size 2 PIP implant and a trial implant held the finger in full extension. With flexion, there was a little bit of toggle but this improved with pair of the extensor mechanism. The wound was copiously irrigated with saline. The final implant was placed. The collateral ligament repair was reinforced with 2- 0 Ethibond suture and this held the finger in good alignment. The extensor tendon was repaired with 2 -0 Ethibond suture and the skin edges reapproximated with 4-0 nylon suture. The wound was dressed with Xeroform, 4x4, Webril and the middle finger was avila taped to the index finger and splinted. The patient tolerated the procedure well and was brought to the recovery room in good condition. [id number]/[facility] #: [id number] [facility]ENTER[facility]atha
== END 2017-04-07 14:45 | disposition home or self-care (01) ==
LOC: OREAST 10:32
PROVIDERS: ATTEND Orthopaedic Surgery
DX: M19.142 Post-traumatic osteoarthritis, left hand (principal); M20.092 Other deformity of left finger(s)
CPT/HCPCS: 88305; 88311; A9270-GY; C1776; J0690; J1100

== ENCOUNTER → 2018-04-23 14:37 | Emergency (ER) | payer BC, OTHER ==
[2018-04-23 17:15] LABS: ABS Basophils 0 10^3/ul (0-0.2); ABS Eosinophils 0.1 10^3/ul (0-0.6); ABS Lymphocytes 1.1 10^3/ul (1.0-4.8); ABS Monocytes 0.3 10^3/ul (0-0.8); ABS Neutrophils 3.4 10^3/ul (1.5-7.7); ABS Nucleated RBC 0 10^3/ul; Eosinophil % 1.2 %; Hematocrit 48 % (42-52); Hemoglobin 16.3 g/dl (14.0-18.0); Lymphocyte % 22.4 %; Mean Corpuscular HGB Conc 34 g/dl (31-36); Mean Corpuscular Hemoglobin 30 pg (27-31); Mean Corpuscular Volume 89 fL (80-94); Nucleated Red Blood Cells % 0; Platelet Count 279 10^3/ul (150-450); Red Cell Distribution Width 13 % (10.5-15)
[2018-04-23 17:37] LABS: Albumin 4.7 g/dL (3.2-5.2); Albumin/Globulin Ratio 1.5 (1-3); BUN/Creatinine Ratio 24.4 (8-20); Calcium 9.5 mg/dL (8.6-10.3); EGFR Non-African American 103.3 (>60); Globulin 3.2 g/dL (2-4); Potassium 3.9 mmol/L (3.5-5.0); Total Bilirubin 0.5 mg/dL (0.2-1.0); Total Protein 7.9 g/dL (6.4-8.9)
[2018-04-23 18:09] LABS: Magnesium 2.2 mg/dL (1.9-2.7)
--- NOTE | 2018-04-23 19:30 | ED ---
Dizziness - HPI Summary HPI Summary: This patient is a 53 year old M presenting to ED with a chief complaint of dizziness since 3-4 weeks ago. When it first began, the patient would only be dizzy after waking up in the morning and the sx would gradually go away. However now he reports that the dizziness does not subside and feels dizzy all day. The CC is described as feeling off balance while walking. The patient rates the pain 0/10 in severity. Symptoms aggravated by moving quickly. Symptoms alleviated by nothing. Patient reports slight BENITEZ. Patient denies vision changes, difficulty speaking, neck pain, difficulty picking things up or holding things, recent sickness, cough, rhinorrhea, and changes in diet. The patient denies any previous episodes similar to this. Denies cardiac Hx or stroke hx. - History Of Current Complaint Chief Complaint: EDDizziness Stated Complaint: DIZZINESS/DRY MOUTH Time Seen by Provider: 04/23/18 19:18 Hx Obtained From: Patient Onset/Duration: Still Present Timing: Constant Severity Currently: None Character: Dizzy - feeling off balance while walking Aggravating Factor(s): Other - moving quickly Alleviating Factor(s): Nothing Associated Signs And Symptoms: Positive: Other: - Patient reports slight BENITEZ. Patient denies vision changes, difficulty speaking, neck pain, picking things up or holding things, recent sickness, cough, rhinorrhea, and changes in diet. - Allergies/Home Medications Allergies/Adverse Reactions: Allergies Allergy/AdvReac Type Severity Reaction Status Date / Time sulfamethoxazole Allergy Hives/Diff. Verified 04/23/18 14:45 [From Bactrim] Breathing/I tching trimethoprim [From Bactrim] Allergy Hives/Diff. Verified 04/23/18 14:45 Breathing/I tching PMH/Surg Hx/FS Hx/Imm Hx Endocrine/Hematology History: Denies: Hx Diabetes, Hx Thyroid Disease Cardiovascular History: Denies: Hx Hypertension, Hx Pacemaker/ICD, Other Cardiovascular Problems/ Disorders Respiratory History: Denies: Hx Asthma, Other Respiratory Problems/Disorders GI History: Denies: Other GI Disorders History: Reports: Other Problems/Disorders - ENLARGED PROSTATE. BPH. Musculoskeletal History: Reports: Other Musculoskeletal History - history of left long finger laceration from a table saw Sensory History: Reports: Hx Contacts or Glasses - WEARS CONTACTS WILL BRING GLASSES DAY OF SURGERY Denies: Hx Hearing Aid Opthamlomology History: Reports: Hx Contacts or Glasses - WEARS CONTACTS WILL BRING GLASSES DAY OF SURGERY Neurological History: Denies: Other Neuro Impairments/Disorders Psychiatric History: Denies: Hx Panic Disorder - Cancer History Hx Chemotherapy: No - Surgical History Surgery Procedure, Year, and Place: APPENDECTOMY-30 YRS AGO [place]. LUMBAR SPINE DISC HERNIATION- 2008 [facility] [place]. RIGHT MENISCAL REPAIR- 2014 [facility] [place]. LEFT LONG FINGER REMOVAL OF FOREIGN BODY 2017 [facility] [place] Hx Anesthesia Reactions: No Infectious Disease History: No Infectious Disease History: Reports: Hx of Known/Suspected MRSA Denies: Traveled Outside the [place] in Last 30 Days - Family History Known Family History: Negative: Cardiac Disease, Hypertension - Social History Alcohol Use: Weekly Alcohol Amount: 2 GLASSES WEEKLY Hx Substance Use: No Substance Use Type: Reports: None Hx Tobacco Use: No Smoking Status (MU): Never Smoked Tobacco Have You Smoked in the Last Year: No Review of Systems Positive: Other - denies recent sickness Positive: Other - denies vision changes Positive: Other - denies rhinorrhea Negative: Cough Positive: Other - denies changes in diet Positive: Other - denies difficulty picking things up or holding things and neck pain Neurological: Other - dizziness; denies difficulty speaking Positive: Headache All Other Systems Reviewed And Are Negative: Yes Physical Exam - Summary Physical Exam Summary: Appearance: Well-appearing, Well-nourished, lying in bed comfortably Skin: Warm, dry, no obvious rash Eyes: sclera anicteric, no conjunctival pallor ENT: mucous membranes moist, pharynx appears normal Neck: Supple, nontender Respiratory: Clear to auscultation, no signs of respiratory distress Cardiovascular: Normal S1, S2. No murmurs. Normal distal pulses in tibial and radial bilaterally. Abdomen: Soft, nontender, normal active bowel sounds present Musculoskeletal: Normal, Strength/ROM Intact, Motor function in all 4 extremities is normal and symmetric. There is no rigidity or tremor noted. Neurological: A&Ox3, awake and alert, mentation is normal, speech is fluent and appropriate, Level of consciousness nml. The patient is alert and oriented. Cranial nerves are grossly intact. Gaze is conjugate and without nystagmus. Peripheral vision is intact to confrontation. There are no gross sensory abnormalities to light touch. There is no truncal or fine motor ataxia. Gait is normal. Psychiatric: affect is normal, does not appear anxious or depressed Triage Information Reviewed: Yes Vital Signs On Initial Exam: Initial Vitals Temp Pulse Resp BP Pulse Ox 97.9 F 81 16 142/91 99 04/23/18 14:40 04/23/18 14:40 04/23/18 14:40 04/23/18 14:40 04/23/18 14:40 Vital Signs Reviewed: Yes Diagnostics - Vital Signs Vital Signs Temp Pulse Resp BP Pulse Ox 04/23/18 17:35 98.8 F 81 16 124/72 98 04/23/18 14:40 97.9 F 81 16 142/91 99 - Laboratory Lab Results: Lab Results 04/23/18 04/23/18 04/23/18 Range/Units 17:04 17:04 17:04 WBC 5.0 (3.5-10.8) 10^3/ul RBC 5.40 (4.00-5.40) 10^6/ul Hgb 16.3 (14.0-18.0) g/dl Hct 48 (42-52) % MCV 89 (80-94) fL MCH 30 (27-31) pg MCHC 34 (31-36) g/dl RDW 13 (10.5-15) % Plt Count 279 (150-450) 10^3/ul MPV 7.0 L (7.4-10.4) fL Neut % (Auto) 68.7 % Lymph % (Auto) 22.4 % [place] % (Auto) 6.9 % Eos % (Auto) 1.2 % Baso % (Auto) 0.8 % Absolute Neuts (auto) 3.4 (1.5-7.7) 10^3/ul Absolute Lymphs (auto) 1.1 (1.0-4.8) 10^3/ul Absolute Monos (auto) 0.3 (0-0.8) 10^3/ul Absolute Eos (auto) 0.1 (0-0.6) 10^3/ul Absolute Basos (auto) 0 (0-0.2) 10^3/ul Absolute Nucleated RBC 0 10^3/ul Nucleated RBC % 0 Sodium 138 (135-145) mmol/L Potassium 3.9 (3.5-5.0) mmol/L Chloride 102 (101-111) mmol/L Carbon Dioxide 29 (22-32) mmol/L Anion Gap 7 (2-11) mmol/L BUN 19 (6-24) mg/dL Creatinine 0.78 (0.67-1.17) mg/dL Est GFR ( Amer) 125.0 (>60) Est GFR (Non-Af Amer) 103.3 (>60) BUN/Creatinine Ratio 24.4 H (8-20) Glucose 105 H (70-100) mg/dL Calcium 9.5 (8.6-10.3) mg/dL Magnesium 2.2 (1.9-2.7) mg/dL Total Bilirubin 0.50 (0.2-1.0) mg/dL AST 16 (13-39) U/L ALT 30 (7-52) U/L Alkaline Phosphatase 93 (34-104) U/L Troponin I 0.00 (<0.04) ng/mL B-Natriuretic Peptide (<=100) pg/mL Total Protein 7.9 (6.4-8.9) g/dL Albumin 4.7 (3.2-5.2) g/dL Globulin 3.2 (2-4) g/dL Albumin/Globulin Ratio 1.5 (1-3) TSH 1.30 (0.34-5.60) mcIU/mL 04/23/18 Range/Units 17:05 WBC (3.5-10.8) 10^3/ul RBC (4.00-5.40) 10^6/ul Hgb (14.0-18.0) g/dl Hct (42-52) % MCV (80-94) fL MCH (27-31) pg MCHC (31-36) g/dl RDW (10.5-15) % Plt Count (150-450) 10^3/ul MPV (7.4-10.4) fL Neut % (Auto) % Lymph % (Auto) % [place] % (Auto) % Eos % (Auto) % Baso % (Auto) % Absolute Neuts (auto) (1.5-7.7) 10^3/ul Absolute Lymphs (auto) (1.0-4.8) 10^3/ul Absolute Monos (auto) (0-0.8) 10^3/ul Absolute Eos (auto) (0-0.6) 10^3/ul Absolute Basos (auto) (0-0.2) 10^3/ul Absolute Nucleated RBC 10^3/ul Nucleated RBC % Sodium (135-145) mmol/L Potassium (3.5-5.0) mmol/L Chloride (101-111) mmol/L Carbon Dioxide (22-32) mmol/L Anion Gap (2-11) mmol/L BUN (6-24) mg/dL Creatinine (0.67-1.17) mg/dL Est GFR ( Amer) (>60) Est GFR (Non-Af Amer) (>60) BUN/Creatinine Ratio (8-20) Glucose (70-100) mg/dL Calcium (8.6-10.3) mg/dL Magnesium (1.9-2.7) mg/dL Total Bilirubin (0.2-1.0) mg/dL AST (13-39) U/L ALT (7-52) U/L Alkaline Phosphatase (34-104) U/L Troponin I (<0.04) ng/mL B-Natriuretic Peptide 2 (<=100) pg/mL Total Protein (6.4-8.9) g/dL Albumin (3.2-5.2) g/dL Globulin (2-4) g/dL Albumin/Globulin Ratio (1-3) TSH (0.34-5.60) mcIU/mL Result Diagrams: 04/23/18 17:04 04/23/18 17:04 Lab Statement: Any lab studies that have been ordered have been reviewed, and results considered in the medical decision making process. - EKG 1624 Cardiac Rate: NL - 69 BPM - Additional Comments Diagnostic Additional Comments: P waves, QRS complex, and T waves are within normal limits, T waves and intervals are normal, no ischemic changes. This is a normal EKG Dizzy Course/Dx - Course Assessment/Plan: This patient is a 53 year old M presenting to ED with a chief complaint of dizziness since 3-4 weeks ago. EKG had NSR at 69 BPM, P waves, QRS complex, and T waves are within normal limits, T waves and intervals are normal , no ischemic changes. This is a normal EKG. This patient will be D/C with a dx of peripheral vertigo. Patient understands and agrees with this plan. - Diagnoses Differential Diagnosis/HQI/PQRI: Labyrinthitis, Other Provider Diagnoses: Peripheral vertigo Discharge - Sign-Out/Discharge Documenting (check all that apply): Patient Departure - D/C - Discharge Plan Condition: Good Disposition: HOME Prescriptions: Meclizine TAB* [Antivert 12.5 TAB*] 25 mg PO TID PRN #20 tab PRN Reason: Dizziness Patient Education Materials: Benign Paroxysmal Positional Vertigo (ED) Referrals: Lowell Simpson MD [Medical Doctor] - Additional Instructions: If this condition does not improve over the next coule of weeks, you should see Dr. Simpson or a neurologist of your choice, as you may need further specialized testing and therapy. - Billing Disposition and Condition Condition: GOOD Disposition: Home - Attestation Statements Document Initiated by Ashley: Yes Documenting Scribe: Maximiliano Fink Provider For Whom Ashley is Documenting (Include Credential): Yehuda Bender MD Scribe Attestation: Maximiliano Agosto, scribed for Yehuda Bender MD on 04/24/18 at 0637. Scribe Documentation Reviewed: Yes Provider Attestation: The documentation as recorded by the Maximiliano katz accurately reflects the service I personally performed and the decisions made by , Yehuda Bender MD Status of Scribe Document: Viewed
[2018-04-23 20:10] VITALS: BP 112/91
== END | disposition home or self-care (01) ==
LOC: ED 14:37
DX: R42 Dizziness and giddiness (principal); R51 Headache; Z88.2 Allergy status to sulfonamides
CPT/HCPCS: 36415; 71046; 80053; 83735; 83880; 84443; 84484; 85025; 93005; 99282